=== PATIENT | female | born 2000 | race African-American/Black ===

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

== ENCOUNTER 2022-11-13 18:07 | Emergency (ER) | payer BC, OTHER ==
[2022-11-13 18:25] VITALS: BP 124/80; PULSE 101; RESP 20; TEMP 98.7; BMI 21.2
== END 2022-11-13 19:52 | disposition home or self-care (01) ==
LOC: JERFT 18:07
DX: L02.415 Cutaneous abscess of right lower limb (principal); M25.561 Pain in right knee
CPT/HCPCS: 99283-25

== ENCOUNTER 2022-12-25 06:00 | Emergency (ER) | payer BC, OTHER ==
[2022-12-25 06:10] VITALS: BP 115/72; PULSE 92; RESP 18; TEMP 97.8; BMI 21.4
== END 2022-12-25 06:28 | disposition left against medical advice (07) ==
LOC: JER 06:00 → EDSEX 06:00 → JER 06:28
DX: R11.0 Nausea (principal)
CPT/HCPCS: 99281-25

== ENCOUNTER 2023-05-20 20:02 | Emergency (ER) | payer BC, OTHER ==
[2023-05-20 20:05] VITALS: BP 114/76; PULSE 71; RESP 18; TEMP 98.5; BMI 21.4
[2023-05-20] MEDS ORDERED: KETOROLAC TROMETHAMINE 30 MG/1 ML VIAL IVPUSH ONE (21:03)
[2023-05-20] MEDS ORDERED: ONDANSETRON 4 MG/2 ML VIAL IVPUSH ONE (21:03)
[2023-05-20 21:33] LABS: BASO % 0.4 % (0-2.0); EOS % 0.4 % (0-4.5); HEMATOCRIT 39.9 % (35.4-49); HEMOGLOBIN 12.7 GM/dL (11.7-16.9); LYMPH % 29.7 % (8-40); MCHC 31.8 g/dl (32.0-35.9); MEAN CELL VOLUME 81.7 fl (80-96); MEAN PLT VOLUME 8.2 fl (7.5-11.1); NEUT % 61.5 % (42.8-82.8); PLATELET COUNT 209 10^3/uL (134-434); RBC 4.89 M/mm3 (4.00-5.60); RDW 14.7 % (11.9-15.9); WHITE BLOOD COUNT 5.5 K/mm3 (4.0-10.0)
[2023-05-20 21:34] LABS: EPI CELLS >36 /uL (0-25.1); HYALINE CASTS 4 /uL (0-3.1); PH,URINE 6.5 (5.0-8.0); URINE APPEARANCE CLEAR; URINE BACTERIA 117 /uL (0-1359); URINE BILIRUBIN NEGATIVE (NEGATIVE); URINE COLOR YELLOW; URINE GLUCOSE (UA) NEGATIVE (NEGATIVE); URINE KETONE NEGATIVE (NEGATIVE); URINE LEUK ESTERASE TRACE (NEGATIVE); URINE NITRITE NEGATIVE (NEGATIVE); URINE PROTEIN TRACE (NEGATIVE); URINE RBC 12 /uL (0-23.9); URINE WBC 70 /uL (0-25.8)
[2023-05-20 22:02] LABS: POTASSIUM 3.7 mmol/L (3.5-5.1)
[2023-05-20 22:04] LABS: CALCIUM 9.6 mg/dL (8.5-10.1)
[2023-05-20 22:05] LABS: ALBUMIN 4.2 g/dl (3.4-5.0); BLOOD UREA NITROGEN 8.4 mg/dL (7-18)
[2023-05-20 22:08] LABS: CREATININE 0.7 mg/dL (0.55-1.3)
[2023-05-20 22:09] LABS: BILIRUBIN,TOTAL 0.4 mg/dL (0.2-1)
[2023-05-20 22:10] LABS: TOT PROT 8.2 g/dl (6.4-8.2)
== END 2023-05-21 00:03 | disposition home or self-care (01) ==
LOC: JERFT 20:02
DX: M25.561 Pain in right knee (principal); R11.2 Nausea with vomiting, unspecified; R10.9 Unspecified abdominal pain
CPT/HCPCS: 36415; 73562-TC-RT-FY; 74177-TC; 80053; 81003; 85025; 87077; 87086; 99285-25; Q9967

== ENCOUNTER 2023-09-21 08:50 | Emergency (ER) | payer BC, OTHER ==
[2023-09-21 08:53] VITALS: BP 119/67; PULSE 84; RESP 18; TEMP 98.3; BMI 26.5
== END 2023-09-21 13:23 | disposition left against medical advice (07) ==
LOC: JER 08:50
DX: Z53.21 Procedure and treatment not carried out due to patient leaving prior to being seen by health care provider (principal)
CPT/HCPCS: 99281-25

== ENCOUNTER 2024-07-28 21:10 | Emergency (ER) | payer BC, OTHER ==
[2024-07-28 21:17] VITALS: BP 109/65; PULSE 63; RESP 18; TEMP 98.6; BMI 22.0
[2024-07-28] MEDS ORDERED: VANCOMYCIN 1,000 MG in DEXTROSE 5%-WATER - 250 ML IVPB ONE (21:44)
[2024-07-28] MEDS ORDERED: PIPERACILLIN/TAZOB 4.5 GM 4.5 GM in DEXTROSE 5%-WATER 100 ML IVPB ONE (21:44)
[2024-07-28 22:41] LABS: ABSOLUTE IMMATURE GRANULOCYTES 0.03 x10^3/uL (0.0-0.031); BASOPHILS # 0.03 x10^3/uL (0.01-0.08); EOSINOPHIL % 0.3 % (0.8-7.0); EOSINOPHILS # 0.02 x10^3/uL (0.04-0.54); HEMATOCRIT 28.7 % (40.1-51.0); HEMOGLOBIN 9.2 g/dL (13.7-17.5); MCHC 32.1 g/dl (32.3-36.5); MEAN PLT VOLUME 9.6 fl (9.4-12.4); MONOCYTE # 0.35 x10^3/uL (0.30-0.82); MONOCYTE % 5.1 % (5.3-12.2); PLATELET COUNT 354 x10^3/uL (163-337); RDW 14.5 % (11.9-15.3)
[2024-07-28] MEDS ORDERED: ONDANSETRON *ODT* 4 MG TABLET ONE (22:46)
[2024-07-28 22:50] LABS: INR 1.11 (0.83-1.09); PROTHROMBIN TIME (PATIENT) 12.1 SEC (9.7-13.0)
[2024-07-28 22:53] LABS: ACTIVATED PTT 29.2 SECONDS (25.2-36.5)
[2024-07-28] MEDS: ONDANSETRON 4 MG TABLET PO ONE (22:54)
[2024-07-28 23:03] LABS: CHLORIDE 106 mmol/L (98-107); POTASSIUM 3.8 mmol/L (3.5-5.1); SODIUM 139 mmol/L (136-145)
[2024-07-28 23:05] LABS: ALBUMIN 3.1 g/dl (3.4-5.0); CALCIUM 9.4 mg/dL (8.5-10.1)
[2024-07-28 23:06] LABS: ANION GAP 4 mmol/L (4-13); BLOOD UREA NITROGEN 10.5 mg/dL (7-18); CO2 29 mmol/L (21-32); GLUCOSE,RANDOM 115 mg/dL (74-106)
[2024-07-28 23:08] LABS: SGPT/ALT 19 U/L (13-61)
[2024-07-28 23:09] LABS: CREATININE 0.6 mg/dL (0.55-1.3); SGOT/AST 15 U/L (15-37)
[2024-07-28 23:10] LABS: BILIRUBIN,TOTAL 0.3 mg/dL (0.2-1); TOT PROT 6.6 g/dl (6.4-8.2)
[2024-07-28 23:11] LABS: ALK PHOS 57 U/L (45-117)
[2024-07-28 23:31] LABS: ERYTHROCYTE SEDIMENTATION RATE 28 mm/hr (0-10)
[2024-07-28] MEDS ORDERED: DALBAVANCIN HCL 500 MG VIAL (RESTRICTED TO ID ONLY) IVPB ONE (23:38)
[2024-07-28] MEDS: DALBAVANCIN HCL 1,500 MG in DEXTROSE 5%-WATER - 500 ML IVPB ONE (23:49)
== END 2024-07-29 06:27 | disposition home or self-care (01) ==
LOC: JER 21:10
DX: L02.415 Cutaneous abscess of right lower limb (principal); M79.661 Pain in right lower leg
CPT/HCPCS: 36415; 73590-TC-RT-FY; 80053; 85025; 85610; 85651; 85730; 86140; 87070; 87075; 87076; 87205; 99284-25; J0875

== ENCOUNTER 2024-08-13 18:48 | Emergency (ER) | payer BC, OTHER ==
[2024-08-13 18:57] VITALS: BP 106/61; PULSE 67; RESP 20; TEMP 98.2; BMI 22.0
[2024-08-13] MEDS ORDERED: IBUPROFEN 600 MG TABLET (FP) PO ONE (19:10)
[2024-08-13] MEDS: IBUPROFEN 600 MG TABLET (FP) PO ONE (19:12)
[2024-08-13] MEDS ORDERED: CEPHALEXIN MONOHYDRATE 500 MG CAPSULE (UD) ONE (19:48)
[2024-08-13] MEDS: CEPHALEXIN MONOHYDRATE 500 MG CAPSULE (UD) PO ONE (19:53)
[2024-08-13] MEDS ORDERED: BACITRACIN ZINC 15 GM TUBE TOPICAL OINTMENT ONE (20:42)
== END 2024-08-13 20:58 | disposition home or self-care (01) ==
LOC: JERFT 18:48
DX: S61.304A Unspecified open wound of right ring finger with damage to nail, initial encounter (principal); Y04.0XXA Assault by unarmed brawl or fight, initial encounter
CPT/HCPCS: 99283-25